=== PATIENT | female | born 1995 | race Caucasian/White ===

== ENCOUNTER 2020-04-25 01:36 | Inpatient (IN) | payer OTHER, SELFPAY ==
[2020-04-25] VITALS (102 sets, daily range): BP systolic 91–132; BP diastolic 48–78; PULSE 65–112; RESP 16; TEMP 36.6–36.9; O2SAT 94–100
[2020-04-25] MEDS: fentaNYL CITRATE INJ (*CRX) 100 MCG/2 ML VIAL 50 MCG IV PUSH (05:08)
[2020-04-25] MEDS: LACTATED RINGERS 1,000 ML 999 ML IV CONT (05:10)
[2020-04-25] MEDS: fentaNYL CITRATE INJ (*CRX) 100 MCG/2 ML VIAL IV PUSH (05:57)
[2020-04-25] MEDS: AMPICILLIN 2 GM/NS 100 ML 2 GM/100 ML BAG IVPB (06:01)
--- NOTE | 2020-04-25 06:18 | WPDANESEPP ---
Anes - Eval Pre Procedure Procedure: labor epidural Date/Time: 04/25/20 06:18 Surgeon: pua Pre Op Diagnosis: Contractions Patient Data Age: 24 Gender: F Height: Weight: Allergies Allergy/AdvReac Type Severity Reaction Status Date / Time No Known Allergies Allergy Verified 04/07/20 14:32 Home Medications Medication Instructions Recorded Confirmed Type PNV cmb#95-ferrous fumarate-FA 1 tablet PO DAILY 04/07/20 04/07/20 History [] Laboratory Tests 04/25/20 04/25/20 06:05 06:05 WBC Pending RBC Pending Hgb Pending Hct Pending MCV Pending MCH Pending MCHC Pending RDW Pending Plt Count Pending MPV Pending Immature Gran % (Auto) Pending Neut % (Auto) Pending Lymph % (Auto) Pending [place] % (Auto) Pending Eos % (Auto) Pending Baso % (Auto) Pending Lymph # (Auto) Pending [place] # (Auto) Pending Eos # (Auto) Pending Baso # (Auto) Pending Abs Immat Gran (auto) Pending Absolute Neuts (auto) Pending Absolute Nucleated RBC Pending Nucleated RBC % Pending RPR Pending Patient hx anesthesia problems: none Family hx anesthesia problems: none PMFSH Social History Social History Substance use: never Gender identity (if verbalized by the patient): Female Spiritual care concerns: No Exam Day of Procedure 04/25/20 06:18
[2020-04-25 06:25] LABS: Basophils Absolute Auto 0.1 K/mm3 (0.0-0.1); Basophils Percent Auto 0.3 % (0.2-1.2); Eosinophils Absolute Auto 0.2 K/mm3 (0-0.3); Eosinophils Percent Auto 0.8 % (0-4.4); Hematocrit 35.4 % (37.0-47.0); Hemoglobin 11.7 g/dL (12.0-15.0); Immature Granulocyte Absolute 0.15 K/mm3 (0.00-0.031); Immature Granulocyte Percent A 0.7 % (0-0.5); Lymphocytes Absolute Auto 3.95 K/mm3 (0.9-3.2); Lymphocytes Percent Auto 19.4 % (18.3-44.2); Mean Corpuscular HGB Conc 33.1 g/dl (32-36); Mean Corpuscular Hemoglobin 28.8 pg (26-34); Mean Corpuscular Volume 87.2 fl (80-100); Mean Platelet Volume 10.9 fl (7.4-10.4); Monocytes Absolute Auto 2.2 K/mm3 (0.1-0.6); Monocytes Percent Auto 10.6 % (2.6-8.5); Neutrophils Absolute Auto 13.9 K/mm3 (1.3-6.7); Neutrophils Percent Auto 68.2 % (45.5-73.1); Platelet Count Result 286 k/mm3 (150-375); Red Blood Count 4.06 M/mm3 (4.2-5.4); Red Cell Distribution Width 13.2 % (11.5-14.5); White Blood Count 20.4 K/mm3 (4.5-10.0)
--- NOTE | 2020-04-25 06:27 | LDADM ---
Dr. Randall Notified of pt cervical chane at 0530. Admitted to labor This patient, Anju Beth, was admitted to Labor/Delivery/Recovery 106 on 04/25/20 at 05:40. Plans for labor, pain management and were discussed with patient. Patient/family oriented to hospital policies and general routines including ID bracelet, bed and alarms, visiting hours, pain management, procedures, bathroom and other care routines, personal items, smoking policy, room service/diet and guest tray routines, infant security routines, and visiting hours. Patient/Family are encouraged to report perceived risks to care and to ask questions if they do not understand what they are told or what they should do. See OBIX for further documentation.
[2020-04-25] MEDS: LACTATED RINGERS 1,000 ML 125 ML IV CONT (07:20)
[2020-04-25] MEDS: AMPICILLIN 1 GM/NS 50 ML 1 GM/50 ML BAG IVPB (09:48)
[2020-04-25] MEDS: OXYTOCIN 30 UNITS/NS 500 ML 30 UNITS/500 ML BAG 999 UNITS IV CONT (10:05)
--- NOTE | 2020-04-25 10:22 | P.HPUP_ITS ---
History and Physical Update Update Date/Time: 04/25/20 10:22 Spontaneous labor at 38 weeks, SROM at complete, [place] History and Physical has been reviewed, including an updated exam of the patient. There are NO changes in the patient's condition. Risks, benefits, and alternatives have been discussed and questions answered. Patient agrees to proceed with procedure.
--- NOTE | 2020-04-25 10:24 | PM.OBPRVD ---
OB - Delivery Note Procedure Delivery date: 04/25/20 Intrapartal events: None Induction method: none Delivery monitor: external FHT and external uterine Route of delivery: Laceration description: None Specimen: Yes Estimated blood loss (mL): 250 Anesthesia type: Epidural Disposition: floor Baby Date of : 04/25/20 Time of : 10:02 Weeks of gestation at delivery: 38 Infant gender: Male Weight (pounds): 6 Weight (ounces): 2 position: Left Occiput Anterior Placenta delivery description: Spontaneous cord vessel description: 3 Vessels score one minute: 9 score five minutes: 9
[2020-04-25] MEDS: OXYTOCIN 30 UNITS/NS 500 ML 30 UNITS/500 ML BAG 125 UNITS IV CONT (11:08)
[2020-04-25] MEDS: BENZOCAINE 20% AER SPR (*SP) 56 GM CAN 1 SPRAY TOPICAL (11:47)
[2020-04-25] MEDS: WITCH HAZEL 40 PADS 1 PAD TOPICAL (11:47)
[2020-04-25] MEDS: LORATADINE 10 MG TABLET PO (13:12)
[2020-04-25] MEDS: IBUPROFEN 600 MG TABLET PO ×2 (13:12→18:53)
[2020-04-25] MEDS: DOCUSATE SODIUM 100 MG CAPSULE PO (18:53)
[2020-04-26 04:30] LABS: Hematocrit 34.7 % (37.0-47.0); Hemoglobin 11.5 g/dL (12.0-15.0)
[2020-04-26 07:20] VITALS: BP 111/59; PULSE 75; RESP 18; TEMP 36.8
[2020-04-26] MEDS: IBUPROFEN 600 MG TABLET PO ×2 (07:22→20:56)
[2020-04-26] MEDS: DOCUSATE SODIUM 100 MG CAPSULE PO (07:23)
[2020-04-26] MEDS: MULTIVIT/MIN/PREN/FOL AC/IRON TABLET 1 TAB PO (07:23)
--- NOTE | 2020-04-26 07:50 | P.PNOB_ITS ---
OB - PN: Subj Subjective Date/time seen: 04/26/20 07:50 Patient comments: no complaints, pain well controlled, incisional pain, tolerating diet and flatus present OB - PN: Obj Data Labs CBC & Chem 7: 04/26/20 04:20 Labs: Laboratory Results - last 24 hr 04/25/20 04/26/20 06:05 04:20 Hgb 11.5 L Hct 34.7 L Blood Type O Positive Antibody Screen Negative OB - PN A/P Plan day: 1 Plan: routine care Comments: No problems, routine care Time Spent With Patient Time: Total time spent is greater than 50% in coordination of care (as documented) at patient's floor/unit and/or counseling patient: Exam 2 Const: General: comfortable, no acute distress and alert Resp: Effort & Inspection: normal respiratory effort Auscultation: no crackles, no rales and no rhonchi Cardio: Rate: regular rate Heart sounds: no click, no murmurs and no rubs GI: Inspection: non-distended GI Palp: No Tenderness to palpation present (GI) Auscultation: normal bowel sounds Other: Incision - CDI Extrem: General: normal to inspection, no pedal edema and no calf tenderness
[2020-04-26 08:00] VITALS: BP 115/82; PULSE 74; RESP 16; TEMP 36.8; O2SAT 99
--- NOTE | 2020-04-26 08:31 | WPDANLDPN2 ---
Anes-Prog Note L&D Date/Time: 04/26/20 08:31 Comfortable throughout: labor and delivery Neuraxial method: epidural Epidural/Spinal procedure site: clean & non-tender Neuro status: Neuro function grossly intact. Cardiovascular status: normal Respiratory status: normal Airway patency: baseline Mental status: baseline Post-Op hydration status: normal Vital Signs: Last Vital Signs Temp 36.8 C 04/25/20 20:00 Pulse 85 04/25/20 20:00 Resp 16 04/25/20 20:00 BP 112/65 04/25/20 20:00 Pulse Ox 98 04/25/20 20:00 Pain score (VAS): 08/08 Post-procedural complaints: none Patient feedback: Patient satisfied with anesthetic care.
[2020-04-26 11:43] LABS: Rapid Plasma Reagin Non-Reactive (NonReactive)
[2020-04-26 20:40] VITALS: BP 132/79; PULSE 80; RESP 16; TEMP 36.6; O2SAT 99
[2020-04-27] MEDS: DOCUSATE SODIUM 100 MG CAPSULE PO ×2 (00:48→08:49)
--- NOTE | 2020-04-27 07:57 | PM.OBPNVD ---
OB - PN: Subj Subjective Date/time seen: 04/27/20 07:57 Patient comments: no complaints, pain well controlled and tolerating diet OB - PN: Obj Data Labs CBC & Chem 7: 04/26/20 04:20 Labs: Laboratory Results - last 24 hr 04/25/20 06:05 RPR Non-reactive OB - PN A/P Plan day: 2 Plan: routine care and discharge home Time Spent With Patient Time: Total time spent is greater than 50% in coordination of care (as documented) at patient's floor/unit and/or counseling patient: Exam Const: General: comfortable and no acute distress Resp: Effort & Inspection: normal respiratory effort Auscultation: no rales, no rhonchi and no wheezes Cardio: Rate: regular rate Heart sounds: no click, no murmurs and no rubs GI: GI Palp: Yes Soft to palpation and No Tenderness to palpation present (GI) Auscultation: normal bowel sounds Extrem: General: normal to inspection, no pedal edema and no calf tenderness
--- NOTE | 2020-04-27 07:58 | PM.OBDSVD ---
DS: Admitting Diagnosis Admitting Diagnosis Admitting Diagnosis: Contractions DS: Discharge Diagnosis Discharge Diagnosis (1) Term delivered: Code(s): O80 - Encounter for full-term uncomplicated delivery Status: Acute OB - DS: Summary OB Procedures : None OB Procedures Intrapartum: Spontaneous Vag Delivery OB Procedures: : None Peripartum Data Delivery Method: Natural Vaginal Laceration description: None complications: none Time Spent with Patient Time attestation: Total time spent providing and/or coordinating discharge services: DS: Data Data Completed and Pending Pending studies at discharge: Pending at discharge 04/25/20 10:02 Surgical [PTH] Routine Labs on day of discharge: Labs from last 24 hours 04/25/20 06:05 RPR Non-reactive Discharge Plan Discharge Discharging Clinician: Sandra Randall Patient Disposition: Home, Self-Care Activity: pelvic rest Diet: regular Patient Instructions: Antibiotic Form Stand Alone Forms: General Discharge Information Follow-up/Referrals: Sandra Randall MD [Physician] - Discharge Medications: Continued PNV cmb#95-ferrous fumarate-FA [] 28 mg iron- 800 mcg Tablet 1 tablet PO DAILY RF: 0 Date of admission: 04/25/20 05:40 Primary Care Provider: ToñoTricia Admitting Provider: Sandra Randall Attending physician on admission: Sandra Randall
[2020-04-27 08:05] VITALS: BP 111/57; PULSE 64; RESP 18; TEMP 36.9; O2SAT 100
[2020-04-27] MEDS: MULTIVIT/MIN/PREN/FOL AC/IRON TABLET 1 TAB PO (08:49)
[2020-04-27] MEDS: IBUPROFEN 600 MG TABLET PO (08:49)
[2020-04-29 09:11] VITALS: BP 120/80; PULSE 99; RESP 18; TEMP 36.9; O2SAT 99
== END 2020-04-27 11:36 | disposition home or self-care (01) | DRG 807 ==
LOC: ANHLDR 05:48 → ANHOB2 13:02
PROVIDERS: Admitting Provider Obstetrics & Gynecology; PCP Internal Medicine; Visit Provider Obstetrics & Gynecology
DX: O43.113 Circumvallate placenta, third trimester (principal); Z37.0 Single live birth; Z3A.38 38 weeks gestation of pregnancy; O69.81X0 Labor and delivery complicated by cord around neck, without compression, not applicable or unspecified
CPT/HCPCS: 36415; 85014; 85018; 85025; 86592; 86850; 86900; 86901; 88307; A9270; J0290; J2590; J2795; J3010; J7120

== ENCOUNTER 2020-05-04 11:55 | Outpatient (RCR) | payer OTHER, SELFPAY | END 2020-05-27 09:08 | disposition home or self-care (01) | LOC: ANHOBOP 11:55 | PROVIDERS: PCP Internal Medicine; Visit Provider Pediatrics | DX: Z39.1 Encounter for care and examination of lactating mother (principal) | CPT/HCPCS: 99212; G0463 ==